=== PATIENT | male | born 1990 | race Hispanic/Latino ===

== ENCOUNTER 2024-03-04 06:38 | Day surgery (SDC) | payer BC, SELFPAY ==
[2024-03-04] VITALS (10 sets, daily range): BP systolic 115–133; BP diastolic 67–82; BMI 33.7
[2024-03-04] MEDS: TYLENOL 1000 MG PO (11:30)
[2024-03-04] MEDS: CELEBREX 200 MG PO (11:30)
[2024-03-04] MEDS: NORMOSOL-R 1000 IV (13:29)
[2024-03-04] MEDS: VANCOCIN 300 ML IV (13:30)
[2024-03-04] MEDS: VANCOCIN 300 MG IV (13:30)
[2024-03-04] MEDS: DILAUDID 0.25 MG IV (15:47)
== END 2024-03-04 16:55 | disposition home or self-care (01) ==
LOC: SDS 06:38
PROVIDERS: ATTENDING PHYSICIAN Orthopaedic Surgery Hand Surgery
DX: T84.84XA Pain due to internal orthopedic prosthetic devices, implants and grafts, initial encounter (principal); Y83.1 Surgical operation with implant of artificial internal device as the cause of abnormal reaction of the patient, or of later complication, without mention of misadventure at the time of the procedure; Z96.698 Presence of other orthopedic joint implants
CPT/HCPCS: 20680; 87070